=== PATIENT | female | born 1980 | race Caucasian/White ===

== ENCOUNTER → 2021-09-17 11:27 | Outpatient (CLI) | payer OTHER, SELFPAY ==
--- NOTE | ~2021-09-17 | XR_ITS ---
EXAMINATION: XR hand LT 2V DATE: 09/17/2021 12:15 INDICATION: Polyarthralgia. Positive LORRIE. TECHNIQUE: 2 views of left hand were obtained. COMPARISON: None. FINDINGS: Bone alignment is normal. No fracture. There is mild osteoarthritis of first carpometacarpa l joint. IMPRESSION: 1. Mild osteoarthritis of first carpometacarpal joint. No evidence of inflammatory arthropathy. Reviewed, dictated and finalized at location E. IMPRESSION: 1. Mild osteoarthritis of first carpometacarpal joint. No evidence of inflammat ory arthropathy.
--- NOTE | ~2021-09-17 | XR_ITS ---
EXAMINATION: XR hand RT 2V DATE: 09/17/2021 12:15 INDICATION: Polyarthralgia. Positive LORRIE. TECHNIQUE: 2 views of right hand were obtained. COMPARISON: None. FINDINGS: Bone alignment is normal. No fracture. There is mild osteoarthritis of first carpometacarpa l joint. IMPRESSION: 1. Mild osteoarthritis of first carpometacarpal joint. No evidence of inflammatory arthropathy. Reviewed, dictated and finalized at location E. IMPRESSION: 1. Mild osteoarthritis of first carpometacarpal joint. No evidence of inflammat ory arthropathy.
--- NOTE | ~2021-09-17 | XR_ITS ---
EXAM: XR foot RT 2V, XR foot LT 2V HISTORY: Positive LORRIE, Polyarthralgia COMPARISON: None available FINDINGS: Normal mineralization. No fracture or dislocation. Mild degenerative narrowing of the bila teral first MTP joints. Mild bilateral hallux valgus. Bilateral plantar enthesopathy. Remaining joint spaces are maintained. No lytic or blastic lesions. No erosions. No soft tissue calcifications. IMPRESSION: No radiographic evidence of inflammatory arthropathy in the feet. Reviewed, dictated and finalized at location K. IMPRESSION: No radiographic evidence of inflammatory arthropathy in the feet.
--- NOTE | ~2021-09-17 | XR_ITS ---
EXAMINATION: XR lumbar spine 2-3V DATE: 09/17/2021 12:15 INDICATION: Polyarthralgia. Positive LORRIE. TECHNIQUE: 3 views of lumbar spine were obtained. COMPARISON: None. FINDINGS: Bone alignment is normal. Vertebral body heights and intervertebral disc heights are normal . There are endplate osteophytes at multiple levels. The facet joints are unremarkable. Surgical clip s in the right upper quadrant are likely from cholecystectomy. IMPRESSION: 1. Mild lumbar spondylosis. Reviewed, dictated and finalized at location E. IMPRESSION: 1. Mild lumbar spondylosis.
--- NOTE | ~2021-09-17 | XR_ITS ---
EXAMINATION: XR_CERV2-3V_CR DATE: 09/17/2021 12:15 INDICATION: Polyarthralgia. Positive LORRIE. TECHNIQUE: 3 views of cervical spine were obtained. COMPARISON: None. FINDINGS: There is 5 degrees levocurvature of cervicothoracic spine. There is mild kyphosis of cervic al spine. Vertebral body heights and intervertebral disc heights are normal. The facet joints are unr emarkable. No central canal stenosis or prevertebral soft tissue swelling. IMPRESSION: 1. Mild cervical kyphosis and cervicothoracic levocurvature. Reviewed, dictated and finalized at location E.
== END ==
PROVIDERS: PCP Nurse Practitioner Family; Visit Provider Physician Assistant
DX: R76.8 Other specified abnormal immunological findings in serum (principal); M40.202 Unspecified kyphosis, cervical region; M47.816 Spondylosis without myelopathy or radiculopathy, lumbar region; M19.042 Primary osteoarthritis, left hand; M19.041 Primary osteoarthritis, right hand
CPT/HCPCS: 72040; 72100; 73120; 73620